=== PATIENT | male | born 1935 | race Caucasian/White ===

== ENCOUNTER 2022-05-18 11:10 | Inpatient (IN) | payer MEDICARE, OTHER ==
[~2022-05-18] VITALS: Ht 175.3 cm; Wt 70.8 kg
[2022-05-18] MEDS ORDERED: MICARDIS HCT 41 EACH PO (11:31)
[2022-05-18 11:32] LABS: BASOPHILS ABSOLUTE AUTO 0.07 K/mm3 (0.00-0.23); BASOPHILS PERCENT AUTO 1 % (0-2); EOSINOPHILS ABSOLUTE AUTO 0.35 K/mm3 (0.00-0.68); EOSINOPHILS PERCENT AUTO 4 % (0-6); Hematocrit 45.8 % (37.0-53.0); Hemoglobin 15.1 g/dL (13.5-17.5); IMMATURE GRAN ABSOLUTE AUTO 0.03 K/mm3 (0.00-0.10); IMMATURE GRAN PERCENT AUTO 0 % (0-1); LYMPHOCYTES ABSOLUTE AUTO 2.07 K/mm3 (0.84-5.20); LYMPHOCYTES PERCENT AUTO 22 % (21-46); MONOCYTES ABSOLUTE AUTO 1.03 K/mm3 (0.16-1.47); MONOCYTES PERCENT AUTO 11 % (4-13); Mean Corpuscular HGB 30.4 pg (26.0-34.0); Mean Corpuscular Volume 92 fL (80-100); Mean Platelet Volume 9.7 fL (9.1-12.4); NEUTROPHILS ABSOLUTE AUTO 5.83 K/mm3 (1.96-9.15); NEUTROPHILS PERCENT AUTO 62 % (41-73); Platelet Count 220 K/mm3 (150-400); RDW Coefficient Variation 13.9 % (11.7-14.2); RDW Standard Deviation 46.7 fL (35.1-46.3); Red Blood Cell Count 4.97 M/mm3 (4.30-5.90); White Blood Cell Count 9.38 K/mm3 (4.00-11.30)
[2022-05-18] MEDS ORDERED: TIMDOROPSO LEFTEYE (11:32)
[2022-05-18] MEDS ORDERED: ATOR10 PO (11:32)
[2022-05-18] MEDS ORDERED: PRESERVISION A1 EAC1 PO (11:32)
[2022-05-18] MEDS ORDERED: TELMISARTAN40 MG PO (11:32)
[2022-05-18] MEDS ORDERED: NIAC500 PO (11:33)
[2022-05-18] MEDS ORDERED: METO50 PO (11:33)
[2022-05-18] MEDS ORDERED: AZIT500 PO (11:34)
[2022-05-18] MEDS ORDERED: [UNRECOGNIZED DRUG - OTHER] BOTHEYES (11:35)
[2022-05-18 11:44] LABS: Albumin, Blood 3.3 g/dL (3.4-5.0); Albumin/Globulin Ratio 0.8 (0.8-1.8); Bilirubin, Total 0.6 mg/dL (0.1-1.0); Bun/Creatinine Ratio 13.5 (12.0-20.0); Calcium, Blood 9.1 mg/dL (8.5-10.1); Creatinine, Blood 0.81 mg/dL (0.60-1.20); Globulin, Blood 3.9 g/dL (2.2-4.0); Potassium, Blood 3.9 mmol/L (3.5-5.5); Total Protein, Blood 7.2 g/dL (6.4-8.2)
[2022-05-18 12:26] LABS: International Normalized Ratio 1.03; Prothrombin Time Results 10.8 Sec (9.7-11.5)
[2022-05-18 16:36] LABS: Automated BF RBC Count 0.002 M/mm3 (0-0); Automated BF WBC Count 0.486 K/mm3 (0-999)
[2022-05-18 16:37] LABS: Body Fluid WBC Count 486 /mm3 (0-999); RBC Count, Body Fluid 2000 /mm3 (0-0)
[2022-05-18 16:55] LABS: Amylase, Body Fluid 41 U/L; Glucose, Body Fluid 93 mg/dL; Lactate Dehydrogenase, Body Fl 290 U/L; Protein, Body Fluid 4.3 g/dL
[2022-05-18 17:02] LABS: Appearance, Body Fluid Hazy (Clear); Color, Body Fluid Yellow (None-Yellow); Total Cell Count, Body Fluid 100
--- NOTE | 2022-05-18 18:25 | NUR ---
DID VITALS WHEN PT CAME IN, GLASS OF WATER, HAS WITH HIM, WANTED PAIN MEDS TOLD RN
--- NOTE | 2022-05-18 19:21 | NUR ---
ADMIT NOTE PATIENT NEW ADMIT TO UNIT AT 1800 FROM ER FOR R PLEURAL EFFUSION WITH PLACEMENT OF CHEST TUBE TO LOW CONTINUOUS WALL SUCTION. PATIENT ALERT AND ORIENTED. SBA TO PIVOT TRANSFER FROM RNEY TO BED. WEAK AND UNSTABLE. CHEST TUBE SITE TO RIGHT LATERAL CHEST WALL WITH GAUZE AND COMPRESSION DRESSING IN PLACE. SS OUTPUT IN CHEST TUBE AND IN [facility]. VSS WITH 98% SATS ON RA. PATIENT BREATHING SOMEWHAT SHALLOW AND GUARDED. REPORTS PAIN WITH DEEP BREATH. SPOUSE ATTENTIVE IN ROOM. REPORT GIVEN TO ASSIGNMENT OFFICER RN.
--- NOTE | 2022-05-19 04:12 | NUR ---
SHIFT SUMMARY PATIENT ADMITTED AT SHIFT CHANGE FOR RIGHT PNEUMOTHORAX W/ CHEST TUBE PLACEMENT. CHEST TUBE DRESSING WITH GAUZE AND PRESSURE TAPE C/D/I. DRAINING SEROSANGUINEOUS FLUID, NO CLOTS NOTED. PATIENT DIMINSHED ON R SIDE, CLEAR ON LEFT UPPER, DIM IN BASES. PLEURAVA SX SET TO -20. REPORTS CHEST PAIN ON R INSERTION SITE W/ DEEP BREATHING AND COUGHING. EDUCATED ON SPLINTING, MEDICATED FOR PAIN WITH 1 NORCO. TOLERATES WELL. TOLERATING PO INTAKE AND USES URINAL AT BEDSIDE. PATIENT IS HYPERTENSIVE THIS AM, CALLED BOX ESTIMATOR HOSPITALIST FOR ORDERS PB 190/70, HYDRALAZINE ORDER OBTAINED AND ADMINISTERED, REPEAT BP 139/73. HR 78. PATIENT IS AOX4, BEDALARM IS ON FOR SAFETY. WILL CONTINUE TO MONITOR FOR CHANGES AND TREAT PER ORDERS.
--- NOTE | 2022-05-19 19:38 | NUR ---
SHIFT SUMMARY S/P R SIDE CHEST TUBE, SS DRAINAGE CONTINUES TO DRAIN OUT BUT AT SLOWER RATES, 200ML OUT THIS SHIFT, INTERMITTENT PAIN ON R SIDE OF CHEST, PT REPORTS SOME INCREASE IN PAIN WITH MOVEMENT AND LAUGHING/COUGHING. PT FAMILY AT BEDSIDE T/O MOST OF THE SHIFT OFFERING SUPPORT. NO ACUTE EVENTS THIS SHIFT, CALL LIGHT IN REACH, REPORT GIVEN TO ОЛЬГА MONTAÑO.
--- NOTE | 2022-05-20 07:36 | NUR ---
SHIFT SUMMARY: S/P RIGHT SIDES CHEST TUBE PLACEMENT. REMAINS DRAINING MODERATE SEROSAN FLUIDS. 190 COLLECTED ON THIS SHIFT. OCCASSIONAL BUBBLING NOTED WITHIN COLLECTION CHAMBER. MEDICATED FOR PAIN X1 DURING THE SHIFT. USING URINAL. SLIGHT SWELLING NOTED TO THE BLE, LEGS ELEVATED WITH PILLOW. DENIES SOB OR CHEST PAIN T/O SHIFT. REMAINS ON 1L O2 VIA NC. REPORT GIVEN TO DAY TIME RN. PT RESTING IN BED WITH CALL LIGHT IN REACH.
--- NOTE | 2022-05-20 19:35 | NUR ---
PT ALERT NO S/S OF ACUTE DISRESS. SAFETY MEASURES IN PLACE REPORT GIVEN TO ON COMING NURSE.
--- NOTE | 2022-05-21 05:04 | NUR ---
SHIFT SUMMARY PT RESTED WELL T/O NIGHT. AAOX4 / [id number]. DISCOMFORT AT TOLERABLE LEVEL T/O NIGHT. DENIES NAUSEA/EMESIS. CT TO RIGHT CHEST WELL C/D/I, 50cc SS OUT, SLIGHT AIR LEAK NOTED IN PRABHJOT, MD AWARE. PT UTILIZED CALL LIGHT T/O NIGHT, X1 SMALL BM. ENCOURAGED DEEP BREATHING TOLERATED, 2L VIA NC, VSS. NO ACUTE CHANGES OVER NIGHT. PT CURRENTLY SITTING UP IN BED AWAITING MORNING X-RAY, GIVEN NEW ICE WATER WITH CALL LIGHT IN REACH.
[2022-05-21 05:27] LABS: Albumin, Blood 2.3 g/dL (3.4-5.0); Anion Gap 4 mmol/L (6-16); Blood Urea Nitrogen 15 mg/dL (8-24); CO2, Blood 31 mmol/L (21-32); Calcium, Blood 8.8 mg/dL (8.5-10.1); Chloride, Blood 98 mmol/L (98-108); Creatinine, Blood 0.83 mg/dL (0.60-1.20); Glomerular Filtration Rate 84 (60-); Glucose, Blood 93 mg/dL (70-99); Phosphorus, Blood 3.2 mg/dL (2.5-4.9); Potassium, Blood 3.7 mmol/L (3.5-5.5); Sodium, Blood 133 mmol/L (136-145)
--- NOTE | 2022-05-21 17:07 | NUR ---
summary NO ACUTE CHANGES T/O SHIFT. CT HAS SMALL AIR LEAK, DR OCHOA AWARE. PT WORKED WITH THERAPY TODAY. PAIN TO CHEST TUBE SITE CONTROLLED ADEQUATELY W/TYLENOL. NO CONFUSION NOTED T/O SHIFT. FAMILY BEDSIDE. CALL LIGHT IN REACH.
[2022-05-22 04:38] LABS: Hematocrit 39.4 % (37.0-53.0); Hemoglobin 13.3 g/dL (13.5-17.5); Mean Corpuscular HGB 30.7 pg (26.0-34.0); Mean Corpuscular HGB Conc 33.8 g/dL (31.5-36.5); Mean Corpuscular Volume 91 fL (80-100); Mean Platelet Volume 9.9 fL (9.1-12.4); Platelet Count 191 K/mm3 (150-400); RDW Coefficient Variation 13.2 % (11.7-14.2); RDW Standard Deviation 44.3 fL (35.1-46.3); Red Blood Cell Count 4.33 M/mm3 (4.30-5.90); White Blood Cell Count 8.03 K/mm3 (4.00-11.30)
[2022-05-22 04:57] LABS: Albumin, Blood 2.1 g/dL (3.4-5.0); Anion Gap 4 mmol/L (6-16); Blood Urea Nitrogen 22 mg/dL (8-24); CO2, Blood 31 mmol/L (21-32); Calcium, Blood 8.7 mg/dL (8.5-10.1); Chloride, Blood 99 mmol/L (98-108); Creatinine, Blood 0.82 mg/dL (0.60-1.20); Glomerular Filtration Rate 84 (60-); Glucose, Blood 108 mg/dL (70-99); Phosphorus, Blood 3.1 mg/dL (2.5-4.9); Potassium, Blood 3.6 mmol/L (3.5-5.5); Sodium, Blood 134 mmol/L (136-145)
--- NOTE | 2022-05-22 08:04 | NUR ---
SUMMARY PT WITH NO RESP DISTRESS TONIGHT.FORGETFUL.REQUIRES BED ALARM PT FORGETS TO CALL FOR ASSIST OOB FOR VOID.
--- NOTE | 2022-05-22 19:12 | NUR ---
SHIFT SUMMARY S/P R HEMOTHORAX, CT RCW WHICH WAS SET TO SUCTION AND CHANGED TO WATER SEAL BY SURGERY, PT DID WELL TODAY WITH NO REPORTS OR C/O SOB, PLAN TO RECHECK CXR IN THE AM AND POSSIBLE DC, PAIN WELL MANAGED TODAY WITH ONE DOES OF TYLENOL, HE DID WELL WITH THERAPY AND WAS UP TO EOB FOR MEALS. NO ACUTE EVENTS THIS SHIFT, CALL LIGHT IN REACH, REPORT GIVEN TO ОЛЬГА MONTAÑO.
--- NOTE | 2022-05-23 05:22 | NUR ---
SHIFT SUMMARY: PT RESTED T/O THE NIGHT. MEDICATED FOR SORENESS TO THE RIGHT SIDE OF CHEST ONCE DURING THE NIGHT. HAD BRIEF EPISODES OF FORGETFULLNESS, EASILY REORIENTED. TOLERATING PO FLUIDS AND FOOD. VOIDING. CHEST TUBE REMAINS SECURE WITH TAPE AND GAUZE. PT DENIED SOB OR CHEST PAIN. CT TO WATER SEAL AND CONTINUES TO DRAIN SEROSANG FLUID. VSS. RESTING AT THIS TIME WITH CALL LIGHT IN REACH. WILL GIVE REPORT TO DAY TIME RN.
--- NOTE | 2022-05-23 19:49 | NUR ---
SHIFT SUMMARY S/P PNEUMO c CHEST TUBE RCW, A/OX 4 THOUGH HE HAS HAD SOME CONFUSION AT NIGHT PER REPORT BUT CLEARS UP DURING THE DAY, CHEST TUBE CONNECTED BACK TO SUCTION PER SURGERY DUE TO INCREASE IN SIZE OF PNEUMO AFTER PLACING ON WATER SEAL YESTERDAY. FAMILY AT BEDSIDE T/O THE SHIFT TODAY. NO ACUTE EVENTS THIS SHIFT, CALL LIGHT IN REACH, REPORT GIVEN TO ОЛЬГА RN.
--- NOTE | 2022-05-23 23:49 | NUR ---
ASSUMED CARE FROM LUIS MONTAÑO. PT ALERT AND ORIENTED IN ROOM. SOME CONFUSION/FORGETFUL BUT EASILY REORIENTED. LUNGS ARE DIM. CHEST TUBE INTACT ON CONT LOW SUCTION. RESTING IN BED. BED ALARM ON.
--- NOTE | 2022-05-23 23:49 | NUR ---
REPORT GIVEN TO STANLEY RN TO ASSUME CARE AT THIS TIME. PATIENT VSS, VOIDING IN URINAL, FORGETFUL AT TIMES REDIRECTS EASILY AND IS PLEASANT AND COOPERATIVE. BED ALARM IS ON FOR SAFETY. CALL LIGHT IN REACH.
--- NOTE | 2022-05-24 02:26 | NUR ---
NEW CANISTER PLACED/CHANGED AT 0220 WITH 50MLS SEROSANG DRAINAGE. CHEST TUBE ON SUCTION AND INTACT, VERIFIED WITH CHARGE NURSE. PT DENIES PAIN. AO. REPORTS COULDN'T SLEEP, BUT COMFORTABLE WATCHING TV. VITALS WNL. DENIES SOB. LUNGS ARE DIM. ENC DEEP BREATHING EXERCISE.
--- NOTE | 2022-05-24 04:28 | NUR ---
SHIFT SUMMARY PT ON CHEST TUBE WITH CONT SUCTION WITH 100MLS WITH SEROSAN DRAINAGE. PT DENIES PAIN AND SOB. CHEST TUBE SITE DRESSING APPEARS INTACT. VSS. DENIES CP, DIZZINESS, NAUSEA AND VOMITING. AURE PO INTAKE. LUNGS ARE DIMINISHED ENC USE OF I/S AND DEEP BREATHING EXERCISE. 1-2 PA WITH BSC AND IND USE OF URINAL. VOIDING. SALINE LOCKED. XRAY THIS MORNING AND WILL BE EVALUATED BY MD. CALL LIGHT WITHIN REACH. WILL PROVIDE REPORT TO [facility].
[2022-05-24 05:08] LABS: BASOPHILS ABSOLUTE AUTO 0.04 K/mm3 (0.00-0.23); BASOPHILS PERCENT AUTO 1 % (0-2); EOSINOPHILS ABSOLUTE AUTO 0.42 K/mm3 (0.00-0.68); EOSINOPHILS PERCENT AUTO 5 % (0-6); Hematocrit 39.1 % (37.0-53.0); Hemoglobin 13.5 g/dL (13.5-17.5); IMMATURE GRAN ABSOLUTE AUTO 0.05 K/mm3 (0.00-0.10); IMMATURE GRAN PERCENT AUTO 1 % (0-1); LYMPHOCYTES ABSOLUTE AUTO 2.44 K/mm3 (0.84-5.20); LYMPHOCYTES PERCENT AUTO 28 % (21-46); MONOCYTES ABSOLUTE AUTO 1.25 K/mm3 (0.16-1.47); MONOCYTES PERCENT AUTO 15 % (4-13); Mean Corpuscular HGB 30.8 pg (26.0-34.0); Mean Corpuscular HGB Conc 34.5 g/dL (31.5-36.5); Mean Corpuscular Volume 89 fL (80-100); Mean Platelet Volume 9.6 fL (9.1-12.4); NEUTROPHILS ABSOLUTE AUTO 4.41 K/mm3 (1.96-9.15); NEUTROPHILS PERCENT AUTO 51 % (41-73); Platelet Count 225 K/mm3 (150-400); RDW Coefficient Variation 13.2 % (11.7-14.2); RDW Standard Deviation 43.6 fL (35.1-46.3); Red Blood Cell Count 4.38 M/mm3 (4.30-5.90); White Blood Cell Count 8.61 K/mm3 (4.00-11.30)
[2022-05-24 05:35] LABS: Bun/Creatinine Ratio 23.7 (12.0-20.0); Calcium, Blood 8.6 mg/dL (8.5-10.1); Creatinine, Blood 0.72 mg/dL (0.60-1.20); Potassium, Blood 3.4 mmol/L (3.5-5.5)
--- NOTE | 2022-05-24 18:49 | NUR ---
SHIFT SUMMARY PT A&O3, VSS/RA, AURE PO, VOIDING WELL/URINAL + BMS/BSC, AMB 1 PP MOD ASSIST WITH FWW & GB, DENIES PAIN. CT TO LIS, 75 MLS OUT THIS SHIFT. REPORT PROVIDED TO PROSPER MONTAÑO.
--- NOTE | 2022-05-25 05:59 | NUR ---
POD7 FOR C/T PLACEMENT. DRESSING REMAINS C/D/I. SS DRAINAGE NOTED IN [place], 70 MLS. PT SLEPT ON AND OFF T/O THE NIGHT. NO C/O SOB OR CP. PT AMBULATED TO BSC MULTIPLE TIMES AND RESTED IN THE RECLINER T/O THE NIGHT. TOLLERATING PO INTAKE W/O N/V. PLAN FOR PT TO BE TRANSFERED TO ANOTHER HOSPITAL FOR REPAIR OF PNEUMO. REPEATE CXR THIS AM. THE PATIENT IS CURRENTLY SLEEPING, IN NO DISTRESS, CALL LIGHT IN REACH, BED ALARM ON FOR SAFETY
--- NOTE | 2022-05-25 14:56 | NUR ---
Pt. is sitting up in a recliner and welcomes my visit. Pt. is pleasant and displays evidence of being a man of jenniffer. Pt. is unsettled about the fact that he needs help. Listen with empathy and a calming presence. Through the devlopment of rapport, Pt. displays a lightened mood. Prayed with Pt. Pt. verbalized gratitude for the spiritual care visit.
--- NOTE | 2022-05-25 16:58 | NUR ---
SHIFT SUMMARY PT A&OX2-3/CUES AND REMINDERS REQ, PLEASANT & COOPERATIVE WITH CARE. CT IN PLACE WITH 90 MLS OUT THIS SHIFT. PT DENIES CP/SOB; EDU/ENC/DEMONSTRATED I.S. AND TCDB. AMB SBA FWW/GB TO CHAIR. VOIDING WELL/URINAL. AURE PO. PLAN FOR CHEST XRAY IN AM. WILL REPORT TO ONCOMING ОЛЬГА RN.
--- NOTE | 2022-05-26 06:19 | NUR ---
Patient awake alert and oriented, confused at times easily redirected. Lung sounds diminished, no desaturations noted. Chest tube out 50mL. Voiding well, standing well and able to sit at bedside with minimal to no assistance. Tylenol given x1 for pain. No questions at this time
--- NOTE | 2022-05-26 11:15 | NUR ---
ACCORDING TO PATIENTS CHEST X-RAY HIS PNEUMOTHORAX HAS NOT IMPROVED SINCE THE LAST ONE. DR. GALINDO AND DR. OCHOA AGREED THAT THE PATIENT NEEDS TO BE TRANSFERRED TO A HIGHER LEVEL OF CARE. THIS NURSE JUST CALLED [facility], [facility], [facility], [facility], [facility], AND [facility] FOR THEIR BED AVAILABLITY THEY ALL HAD NO BEDS AT THIS TIME. [facility]MENC[facility] LAMBERT DID SAY THAT HE COULD BE PUT ON A WAIT LIST WITH NO ETA OF BED AVAILABLITY. DR. GALINDO REPORTED SAYING "I'LL GIVE THEM A CALL SO HE IS AT LEAST ON A WAIT LIST". WILL TRY CALLING AGAIN THIS AFTERNOON FOR ANY UPDATES.
--- NOTE | 2022-05-26 13:24 | NUR ---
Pt. is somnilent but responds when I enter the room. Spouse is present. Pt. is pleasant, but since he is somnilent I keep the visit short. Both Pt. and spouse verbalized gratitude for the spiritual care visit.
--- NOTE | 2022-05-26 15:11 | NUR ---
SHIFT SUMMARY: DR. GALINDO WAS ABLE FOR THE PATIENT TO BE ACCEPTED AT [facility] IN [place]. HOWEVER, WE ARE STILL WAITING FOR A BED TO BE AVAILABLE. PATIENT IS A&OX3-4. HE CAN SOMETIMES BE FORGETFUL BUT IS EASILY REORIENTED. HIS CHEST TUBE IS ON SUCTION AND HAS RED COLORED OUTPUT. PAIN IS MANAGED WITH PO PAIN MEDICATIONS. HIS RIGHT INCISION IS C/D/I WITH GAUZE AND TEGADERM OVER IT. PATIENT DENIES SOB OR CHEST PAIN. OXYGEN SATS ARE >90% ON RA AT THIS TIME. HE IS TOLERATING PO INTAKE AND IS VOIDING. FAMILY IS AT BEDSIDE. PATIENT IS LAYING IN BED WITH CALL LIGHT IN REACH.
--- NOTE | 2022-05-26 19:41 | NUR ---
PATIENT DOES HAVE A BED AT [facility] IN [place]. THIS NURSE JUST GAVE REPORT TO ONEIDA VIRAMONTES RN AT [facility]. ONEIDA RN HAD NO FURTHER QUESTIONS AFTER GIVEN REPORT. NIGHTSHIFT SABRA ANGEL IS NOTIFYING FAMILY AND SETTING UP TRANSPORT. PATIENT IS LAYING IN BED WITH CALL LIGHT IN REACH.
--- NOTE | 2022-05-26 22:43 | NUR ---
DISCHARGE/TRANSFERED TO [facility] ([place]) TRANSPORT ARRIVED AT 1954. PT ALERT AND ORIENTEDX3. FORGETFUL AT TIMES. USED BSC AND HAD A MEDIUM BROWN SOFT BM. VOIDED UNMEASURED. DENIES PAIN. CHEST TUBE INTACT, CONT SUCTION ON -20. PT HAD 40MLS SEROSANG DRAINAGE FROM CHEST TUBE. CHEST TUBE ON RIGHT SIDE CHEST INTACT WITH GAUZE AND FOAM TAPE. PT TRANSFERS 1-2 PERSON ASSIST WITH FWW. ALL HIS BELONGINGS EXCEPT FOR GLASSES WAS GATHERED IN 2 BLUE BAGS AND HIS WALKER. PT'S FAMILY WAS CONTACTED AND PROVIDED AN UPDATE, SPOKE TO HIS SON CAROL. PT WILL BE TRANSFERED AT [facility] ROOM 363. ALSO NOTIFIED AND PROVIDED AN UPDATE TO STEPHANE MONTAÑO FROM [facility] AT [phone]. THE FAMILY WILL COME IN [place] MORNING TO INFORMATION SYSTEMS CONSULTANT PATIENT'S BELONGING. VSS.
== END 2022-05-26 21:00 | disposition short-term general hospital (02) | DRG 200 ==
LOC: ER 11:10 → SURS 15:51
PROVIDERS: Emergency Medicine; Internal Medicine; ADMIT Internal Medicine
PROC: 0W9930Z Drainage of Right Pleural Cavity with Drainage Device, Percutaneous Approach (ICD-10-PCS; principal; 2022-05-18)
DX: S27.0XXA Traumatic pneumothorax, initial encounter (principal); E87.1 Hypo-osmolality and hyponatremia; Z28.21 Immunization not carried out because of patient refusal; I10 Essential (primary) hypertension; E78.5 Hyperlipidemia, unspecified; R29.6 Repeated falls; Z79.2 Long term (current) use of antibiotics; Z79.899 Other long term (current) drug therapy; W18.39XA Other fall on same level, initial encounter; Y92.009 Unspecified place in unspecified non-institutional (private) residence as the place of occurrence of the external cause
CPT/HCPCS: 32551; 36415; 71045; 71046; 71260; 80048; 80053; 80069; 82150; 82945; 83615; 84157; 85025; 85027; 85610; 87070; 87205; 89051; 93971; 96374-59; 96375-59; 97110; 97116; 97161; 97165; 97530; 97535; 99285-25; A9270; J0360; J2270; J2405; J7030; Q9967